=== PATIENT | male | born 1935 | race Caucasian/White ===

== ENCOUNTER → 2020-09-12 12:58 | Outpatient (CLI) | payer MEDICARE, OTHER, SELFPAY | PROVIDERS: Referring Provider Internal Medicine Gastroenterology; Visit Provider Internal Medicine Gastroenterology | DX: K59.00 Constipation, unspecified (principal); Z53.8 Procedure and treatment not carried out for other reasons ==

== ENCOUNTER → 2020-09-19 08:42 | Outpatient (CLI) | payer MEDICARE, OTHER, SELFPAY ==
[2020-09-19 09:36] LABS: BUN Creatinine Ratio 17.3 (6-22); Blood Urea Nitrogen 19 mg/dL (9-20); Calcium 9.6 mg/dL (8.4-10.2); Carbon Dioxide 30 mmol/L (22-32); Chloride 108 mmol/L (98-107); Estimated Glomerular Filt Rate > 60.0 mL/min (>60); Glucose 101 mg/dL (80-110); HEMOLYSIS < 15 (0-50); Sodium 141 mmol/L (137-145)
== END ==
PROVIDERS: Referring Provider Internal Medicine Gastroenterology; Visit Provider Internal Medicine Gastroenterology
DX: Z01.812 Encounter for preprocedural laboratory examination (principal)
CPT/HCPCS: 36415; 80048

== ENCOUNTER → 2020-09-22 12:01 | Outpatient (CLI) | payer MEDICARE, OTHER, SELFPAY ==
--- NOTE | 2020-09-22 12:37 | DI.CT.S_ITS ---
PROCEDURE: CT ABDOMEN PELVIS W CON INDICATIONS: Constipation, unspecified TECHNIQUE: After the administration of oral and intravenous contrast, 5 mm thick sections acquired from the diaphragms to the symphysis. 5 mm thick coronal and sagittal reformats were performed. For radiation dose reduction, the following was used: automated exposure control, adjustment of mA and/or kV according to patient size. COMPARISON: [facility], CT, CHEST/ABD/PEL WITH CONTRAST, 05/24/2015, 12:37. FINDINGS: Image quality: Excellent. ABDOMEN: Lung bases: Lung bases are clear. Heart size is normal. Solid organs: Liver is normal in size . There is a right hepatic lobe cyst measuring 77 mm. Gallbladder is surgically absent. Biliary system is non-dilated. Pancreas enhances normally. Spleen is normal in size and enhancement. No adrenal nodules. Kidneys are normal in size and enhancement, without hydronephrosis. Peritoneum and bowel: There is moderate to severe focal thickening of the mid transverse colon within the anterior abdomen. There is mild surrounding fat stranding. Stomach, small bowel, and colon loops are otherwise normal in caliber and wall thickness. Moderate diffuse colonic stool. Appendix not seen. No evidence of appendicitis. No free fluid or air. Nodes and vessels: No retroperitoneal or mesenteric adenopathy. Aorta and inferior vena cava are normal in caliber. Miscellaneous: No ventral hernias. PELVIS: Genitourinary: Bladder wall thickness is normal. Miscellaneous: No inguinal hernias or adenopathy. Bones: No suspicious bony lesions. No vertebral body compression fractures. IMPRESSION: 1. Focal region of transverse colonic thickening, suggestive of neoplasm. Further assessment with endoscopy is recommended. Dictated by: Rivka Stone M.D. on 09/22/2020 at 15:29 Approved by: Rivka Stone M.D. on 09/22/2020 at 15:33
== END ==
PROVIDERS: Referring Provider Internal Medicine Gastroenterology; Visit Provider Internal Medicine Gastroenterology
DX: K59.00 Constipation, unspecified (principal)
CPT/HCPCS: 74177

== ENCOUNTER → 2021-11-26 08:09 | Outpatient (CLI) | payer MEDICARE, OTHER, SELFPAY ==
[2021-11-26 09:06] LABS: Prostate Specific Antigen 2.34 ng/mL (0.10-4.00)
== END ==
PROVIDERS: PCP Physician Assistant Medical; Referring Provider Specialist; Visit Provider Specialist
DX: N40.0 Benign prostatic hyperplasia without lower urinary tract symptoms (principal)
CPT/HCPCS: 36415; 84153

== ENCOUNTER → 2021-12-21 07:43 | Outpatient (CLI) | payer MEDICARE, OTHER, SELFPAY ==
--- NOTE | 2021-12-21 07:48 | DI.NM.S_ITS ---
PROCEDURE: NM GASTRIC EMPTYING STUDY RADIOPHARMACEUTICAL: 1 mCi Tc-99m sulfur colloid in an egg sandwich. INDICATIONS: Nausea with vomiting, unspecified TECHNIQUE: A Tc-99m labeled oatmeal was served to the patient. Anterior and posterior planar images of the abdomen were obtained at 0 minutes and 30 minutes, then at hourly intervals up to 4 hours. The patient was upright and ambulating during the interval. COMPARISON: [facility], CT, CT ABDOMEN PELVIS W CON, 09/22/2020, 12:58. FINDINGS: The stomach has normal size, morphology, and position. There is normal emptying of solid gastric contents from the stomach by visual inspection. No gastroesophageal reflux is visualized. The percentage of tracer retained at specific time points are as follows: Time point Percent gastric retention Average 30 minutes 39.8% 38% 1 hour 16.1% 23% 2 hours 1.9% 14% 3 hours 1.6% 9% 4 hours - 0% IMPRESSION: Probably normal gastric emptying study. The patient was unable to tolerate egg sandwich. Oatmeal was used for substitute. [facility] 2018, 60: 2040. Dictated by: Lori Cruz M.D. on 12/21/2021 at 11:47 Approved by: Lori Cruz M.D. on 12/21/2021 at 11:49
== END ==
PROVIDERS: PCP Physician Assistant Medical; Referring Provider Internal Medicine; Visit Provider Internal Medicine
DX: R11.2 Nausea with vomiting, unspecified (principal)
CPT/HCPCS: 78264; A9541

== ENCOUNTER → 2022-01-08 10:40 | Outpatient (CLI) | payer MEDICARE, OTHER, SELFPAY ==
--- NOTE | 2022-01-08 10:43 | DI.CT.S_ITS ---
PROCEDURE: CT ABDOMEN PELVIS WO CON INDICATIONS: Asymptomatic microscopic hematuria TECHNIQUE: Axial sections were acquired from the lung bases to the pubic symphysis. Coronal and sagittal reformats were performed. For radiation dose reduction, the following was used: automated exposure control, adjustment of mA and/or kV according to patient size. COMPARISON: [facility], CT, CHEST/ABD/PEL WITH CONTRAST, 05/24/2015, 12:37. [facility], CT, CT ABDOMEN PELVIS W CON, 09/22/2020, 12:58. FINDINGS: Image quality: Excellent. Lung bases: Unremarkable. Heart: No significant findings. Trace pericardial effusion. URINARY: Right Kidney: No stones or hydronephrosis. Right Ureter: No hydroureter. Left Kidney: No stones or hydronephrosis. Left Ureter: No hydroureter. Bladder: Normal wall thickness. No stones. ABDOMEN: Liver: There are multiple hepatic cysts. The largest cyst is near the hepatic dome measuring 6.7 x 7.3 cm. Gallbladder: Unremarkable. Biliary ducts: Unremarkable. Pancreas: Unremarkable. Spleen: Unremarkable. Adrenal Glands: Unremarkable. Stomach and Bowel: Stomach, small bowel loops, and colon are normal in caliber. Sigmoid diverticulosis without acute diverticulitis. Peritoneum: No abnormal intraperitoneal fluid. No free air. Ventral Wall: No hernia. Abdominal Nodes: No enlarged retroperitoneal or mesenteric lymph nodes. Vessels: Aorta and inferior vena cava are normal in size. Moderate atherosclerotic calcifications. PELVIS: Pelvic Organs: Prostate is enlarged. Pelvic Nodes: Unremarkable. Miscellaneous: No inguinal hernias are seen. Bones: Scoliosis. Moderate degenerative disc and facet disease in lumbar spine. IMPRESSION: 1. A cause for micro hematuria is not identified. If clinically indicated, CT IVP may be helpful. 2. Enlarged prostate. 3. Diverticulosis without acute diverticulitis. 4. Multiple hepatic cysts. Dictated by: Lori Cruz M.D. on 01/08/2022 at 16:34 Approved by: Lori Cruz M.D. on 01/08/2022 at 16:40
== END ==
PROVIDERS: PCP Physician Assistant Medical; Referring Provider Urology; Visit Provider Urology
DX: R31.21 Asymptomatic microscopic hematuria (principal); N40.0 Benign prostatic hyperplasia without lower urinary tract symptoms; K57.30 Diverticulosis of large intestine without perforation or abscess without bleeding; K76.89 Other specified diseases of liver
CPT/HCPCS: 74176

== ENCOUNTER → 2022-12-23 10:37 | Outpatient (CLI) | payer MEDICARE, OTHER, SELFPAY ==
--- NOTE | 2022-12-23 10:39 | DI.US.S_ITS ---
PROCEDURE: US CAROTID DOPPLER BI INDICATIONS: CVD TECHNIQUE: Color and pulse Doppler interrogation was performed of both carotid systems, with image documentation and velocity measurements. COMPARISON: None. FINDINGS: Stenosis calculations are based on SRU (Society of Radiologists in Ultrasound) criteria. Right side: Brachial blood pressure: 121/71 mm Hg. Common carotid artery peak systolic velocity: 63 cm/sec. Internal carotid artery peak systolic velocity: 70 cm/sec. Internal carotid artery end diastolic velocity: 20 cm/sec. External carotid artery peak systolic velocity: 60 cm/sec. ICA/CCA peak systolic ratio: 1.1 . Ibrahim scale imaging description: Mild atherosclerotic plaques. Percent internal carotid artery stenosis: Less than 50% stenosis . Vertebral artery: Flow direction is antegrade. Left side: Brachial blood pressure: 120/71 mm Hg. Common carotid artery peak systolic velocity: 61 cm/sec. Internal carotid artery peak systolic velocity: 62 cm/sec. Internal carotid artery end diastolic velocity: 19 cm/sec. External carotid artery peak systolic velocity: 63 cm/sec. ICA/CCA peak systolic ratio: 1.0 . Ibrahim scale imaging description: Mild atherosclerotic plaques. Percent internal carotid artery stenosis: Less than 50% stenosis . Vertebral artery: Flow direction is antegrade. IMPRESSION: Less than 50% stenosis of the bilateral internal carotid arteries. Mild atherosclerotic plaques bilaterally. Dictated by: Vito Garcia M.D. on 12/23/2022 at 12:50 Approved by: Vito Garcia M.D. on 12/23/2022 at 12:52
== END ==
PROVIDERS: PCP Physician Assistant Medical; Referring Provider Internal Medicine Cardiovascular Disease; Visit Provider Internal Medicine Cardiovascular Disease
DX: I67.89 Other cerebrovascular disease (principal); I65.23 Occlusion and stenosis of bilateral carotid arteries
CPT/HCPCS: 93880

== ENCOUNTER 2023-12-18 10:09 | Emergency (ER) | payer MEDICARE, SELFPAY ==
[2023-12-18] VITALS (12 sets, daily range): BP systolic 107–179; BP diastolic 64–86; PULSE 70–105; RESP 12–24; TEMP 36.7; O2SAT 95–98; BMI 25.8
--- NOTE | 2023-12-18 10:26 | ED.ARRPALP ---
HPI - Arrhythmia/Palpitations General Chief Complaint: Arrhythmia/Palpitations Stated Complaint: Covid + In Afib Time Seen by Provider: 12/18/23 10:12 Source: patient Mode of arrival: Ambulatory History of Present Illness HPI narrative: Patient is an 88-year-old male. He has a history of atrial fibrillation. Is on apixaban. States his medications normally control his symptoms. He was advised to come to the emergency department after contacting home advice nurse. He states that he was diagnosed with COVID approximately 4 days ago. This was after his was positive and he started to develop a scratchy throat. He states that he has some sinus congestion but otherwise is asymptomatic from the COVID. States he occasionally has some chest discomfort. States that he felt like his AFib was ?acting up? this morning. He took his pulse this morning and it was in the upper 90s. He contacted the nurse advice line that advised him to come in for evaluation of his AFib and also potential pneumonia. Related Data Home Medications Medication Instructions Recorded Confirmed apixaban 2.5 mg tablet (Eliquis) 2.5 mg PO BID 12/13/21 01/10/22 cholecalciferol (vitamin D3) 125 125 mcg PO DAILY 12/13/21 01/10/22 mcg (5,000 unit) capsule coenzyme Q10 10 mg capsule 10 mg PO ONCE 12/13/21 01/10/22 pitavastatin magnesium 1 mg tablet 1 mg PO DAILY 12/13/21 01/10/22 polyethylene glycol 3350 17 17 g PO DAILY 12/13/21 01/10/22 gram/dose oral powder (Miralax) wheat dextrin 3 gram/3.5 gram oral 1 packet PO DAILY 12/13/21 01/10/22 powder packet (Benefiber Clear Sugar Free(dextrin)) dronedarone 400 mg tablet (Multaq) 400 mg PO BID 01/10/22 01/10/22 Allergies Allergy/AdvReac Type Severity Reaction Status Date / Time codeine [CODEINE] Allergy Unknown Verified 12/18/23 10:19 iodine [IODINE] Allergy Unknown Verified 12/18/23 10:19 Penicillins [PENICILLINS] Allergy Unknown Verified 12/18/23 10:19 Sulfa (Sulfonamide Allergy Verified 12/18/23 10:19 Antibiotics) Review of Systems Review of Systems ROS Unobtainable: All systems reviewed & are unremarkable except as noted in HPI and below Patient History Medical History Lower urinary tract symptoms Chronic anticoagulation Asymptomatic microscopic hematuria History of bucket handle tear of lateral meniscus History of inflammatory bowel disease History of gastroesophageal reflux (GERD) History of diverticulitis History of chest pain History of asthma History of urinary retention Surgical History History of circumcision History of appendectomy Hx of total adrenalectomy Family History Father Cancer Coronary artery disease Hearing impaired Hyperlipidemia Hypertension Mother Cancer Brother Cancer Social History marital status: Smoking Status: Never smoker Smoking Status: Never smoker alcohol intake frequency: holidays/special occasions only Substance Use Type: does not use Exam Initial Vital Signs Initial Vital Signs: Vital Signs Temperature 98.1 F 12/18/23 10:10 Pulse Rate 104 H 12/18/23 10:10 Respiratory Rate 17 12/18/23 10:10 Blood Pressure 179/86 H 12/18/23 10:10 Pulse Oximetry 97 12/18/23 10:10 Oxygen Delivery Method Room Air 12/18/23 10:10 Const General: cooperative, comfortable and No ill appearing HENMT Head: normal to inspection and atraumatic Resp Effort & Inspection: normal respiratory effort, no cough, not labored and not tachypneic Auscultation: clear to auscultation bilaterally Cardio Rate: regular rate Rhythm: abnormal rhythm Skin General: no rashes or lesions noted Neuro General: patient alert, patient awake and moves all extremities Extrem General: normal to inspection Course Orders Ordered: ED Orders 12/18/23 10:12 EKG-12 Lead Stat 12/18/23 10:25 Complete Blood Count AUTO DIFF Stat Comprehensive Metabolic Panel Stat Lipase Stat Magnesium Stat NT-proBNP (BNP-Adult 18+) Stat Troponin & CK Cardiac Panel Stat 12/18/23 10:27 XR chest 1V Stat 12/18/23 12:35 Troponin & CK Cardiac Panel Stat Vital Signs Vital signs: Vital Signs - 8 hr 12/18/23 10:10 12/18/23 10:16 12/18/23 10:17 Temperature 98.1 F Pulse Rate 104 H 105 H Respiratory Rate 17 Blood Pressure 179/86 H 179/86 H Pulse Oximetry 97 96 Oxygen Delivery Method Room Air 12/18/23 10:17 12/18/23 10:30 12/18/23 10:31 Temperature Pulse Rate 98 H 75 Respiratory Rate 16 18 Blood Pressure 116/75 Pulse Oximetry 98 95 Oxygen Delivery Method Room Air 12/18/23 10:31 12/18/23 11:00 12/18/23 11:00 Temperature Pulse Rate 78 80 Respiratory Rate 18 23 Blood Pressure 117/66 Pulse Oximetry 95 96 Oxygen Delivery Method Room Air MDM - Arrhythmia/Palpitations Lab Data Attestation: I reviewed the patient's lab results. 12/18/23 10:25 12/18/23 10:25 Labs: Lab Results 12/18/23 12/18/23 Range/Units 10:25 12:35 WBC 6.6 (4.5-11.0) X10^3/uL RBC 4.82 (4.5-5.9) X10^6/uL Hgb 14.0 (13.5-17.5) g/dL Hct 42.1 (41-53) % MCV 87.2 (80-100) fL MCH 29.1 (26-34) PG MCHC 33.4 (30-36) % RDW 15.0 H (11.6-14.8) % Plt Count 191 (150-400) X10^3/uL Neut % (Auto) 64.2 (50-75) % Lymph % (Auto) 20.3 L (25-40) % Knott % (Auto) 13.4 (3-14) % Eos % (Auto) 1.2 L (2-4) % Baso % (Auto) 0.9 (0-2) % Neut # (Auto) 4300 (3440-1376) /uL Lymph # (Auto) 1300 (6063-6953) /uL Knott # (Auto) 900 (0-900) /uL Eos # (Auto) 100 (0-450) /uL Baso # (Auto) 100 (0-100) /uL Sodium 140 (137-145) mmol/L Potassium 3.6 (3.4-5.1) mmol/L Chloride 108 H (98-107) mmol/L Carbon Dioxide 28 (22-32) mmol/L BUN 26 H (9-20) mg/dL Creatinine 1.12 (0.66-1.25) mg/dL Estimated GFR > 60 (>60) mL/min BUN/Creatinine Ratio 23.2 H (6-22) Glucose 84 (80-110) mg/dL Calcium 8.6 (8.4-10.2) mg/dL Magnesium 2.4 H (1.6-2.3) mg/dL Total Bilirubin 0.5 (0.2-1.3) mg/dL AST 38 (17-59) IU/L ALT 21 (<50) IU/L Alkaline Phosphatase 70 (38-126) U/L Total Creatine Kinase 171 H 145 (55-170) U/L Troponin I 0.041 H 0.035 H (0.01-0.034) ng/mL NT-Pro-B Natriuret Pep 4720 H (<450) pg/mL Total Protein 6.8 (6.3-8.2) g/dL Albumin 3.8 (3.5-5.0) g/dL Globulin 3.0 (1.7-4.1) g/dL Albumin/Globulin Ratio 1.3 (1.0-2.8) Lipase 132 (23-300) U/L Imaging Data Chest x-ray: Radiologist's Impresson: PROCEDURE: XR CHEST 1V INDICATIONS: covid + eval for PNA TECHNIQUE: One view of the chest was acquired. COMPARISON: None. FINDINGS: Surgical changes and devices: None. Lungs and pleura: Lungs are clear. No pleural effusions or pneumothorax. Mediastinum: Mediastinal contours appear normal. Heart size is normal. Bones and chest wall: No suspicious bony lesions. Overlying soft tissues appear unremarkable. IMPRESSION: No acute cardiopulmonary abnormality is seen. ECG Data Attestation: I personally reviewed and interpreted this ECG as follows: Interpretation: Atrial fibrillation Ventricular rate is 73 Left axis deviation Normal QRS QTC No ST T wave changes MDM Narrative Medical decision making narrative: Patient is in AFib med he was rate controlled. He was anticoagulated. He was COVID positive with a home test earlier this week I suspect that is still was the case based on his presentation today. Chest x-ray is unremarkable. He was not hypoxic. Not tachypneic. Second troponin actually lower than the 1st and I doubt this is ACS. Most likely related to his COVID in his AFib. Given his age, COVID positive status in the past he was rate controlled we will hold on cardioversion for now. I suspect that the AFib is related to his COVID. Will discharge patient home with instructions to contact his primary doctor and fund development manager for follow-up him he expressed understanding and agreement with plan. Discharge Plan Departure Patient Disposition: Home Clinical Impression: Atrial fibrillation, COVID-19 Instructions: DI for Atrial Fibrillation, COVID-19 Activity Restrictions/Additional Instructions: Recommend that you continue to take all of your medications as directed. Contact your primary doctor and also your fund development manager for a follow-up. Follow all current CDC guidelines with regard to quarantine in your positive COVID-19 status. Return to the emergency department for new or worsening symptoms. Prescriptions: No Action Eliquis 2.5 mg tablet 2.5 mg PO BID pitavastatin magnesium 1 mg tablet 1 mg PO DAILY cholecalciferol (vitamin D3) 125 mcg (5,000 unit) capsule 125 mcg PO DAILY coenzyme Q10 10 mg capsule 10 mg PO ONCE polyethylene glycol 3350 [Miralax] 17 gram/dose powder 17 g PO DAILY Benefiber Clear SF (dextrin) 3 gram/3.5 gram powder in packet 1 packet PO DAILY Rx Instructions: mix into at least 4 oz water or juice before administering Multaq 400 mg tablet 400 mg PO BID Rx Instructions: must administer with a meal/food Referrals: Azra Busby PA-C [Primary Care Provider] - Stand Alone Forms: Patient Portal/API
--- NOTE | 2023-12-18 10:27 | DI.RAD.S_ITS ---
PROCEDURE: XR CHEST 1V INDICATIONS: covid + eval for PNA TECHNIQUE: One view of the chest was acquired. COMPARISON: None. FINDINGS: Surgical changes and devices: None. Lungs and pleura: Lungs are clear. No pleural effusions or pneumothorax. Mediastinum: Mediastinal contours appear normal. Heart size is normal. Bones and chest wall: No suspicious bony lesions. Overlying soft tissues appear unremarkable. IMPRESSION: No acute cardiopulmonary abnormality is seen. Dictated by: Allen Altamirano M.D. on 12/18/2023 at 11:34 Approved by: Allen Altamirano M.D. on 12/18/2023 at 11:34
--- NOTE | 2023-12-18 10:33 | EKG_ITS ---
[address] [address] Test Date: 2023-12-18 Pat Name: Andie Nieto Department: [facility] Room: Gender: Male Car Checker: ARNAUD : 1935 Requested By: Order Number: [id number] Reading MD: Ashu Romero MD Measurements Intervals [place] Rate: 73 P: AK: QRS: -52 QRSD: 78 T: 21 QT: 412 QTc: 453 Interpretive Statements Atrial fibrillation Left axis deviation Inferior infarct , age undetermined Anterior infarct , age undetermined NO PRIOR TRACING Electronically Signed On 12-18-2023 12:07:02 PDT by Ashu Romero MD
[2023-12-18 10:38] LABS: Add Manual Diff / Slide Review NO; Basophils Absolute Auto 100 /uL (0-100); Basophils Percent Auto 0.9 % (0-2); Eosinophils Absolute Auto 100 /uL (0-450); Eosinophils Percent Auto 1.2 % (2-4); Hematocrit 42.1 % (41-53); Lymphocytes Absolute Auto 1300 /uL (1100-4500); Lymphocytes Percent Auto 20.3 % (25-40); Mean Corpuscular HGB Conc 33.4 % (30-36); Mean Corpuscular Hemoglobin 29.1 PG (26-34); Mean Corpuscular Volume 87.2 fL (80-100); Monocytes Absolute Auto 900 /uL (0-900); Monocytes Percent Auto 13.4 % (3-14); Neutrophils Absolute Auto 4300 /uL (1500-7000); Neutrophils Percent Auto 64.2 % (50-75); Platelet Count 191 X10^3/uL (150-400); Red Blood Cell Count 4.82 X10^6/uL (4.5-5.9); White Blood Cell Count 6.6 X10^3/uL (4.5-11.0)
[2023-12-18 10:45] LABS: Alanine Aminotransferase 21 IU/L (<50); Albumin 3.8 g/dL (3.5-5.0); Albumin Globulin Ratio 1.3 (1.0-2.8); Alkaline Phosphatase 70 U/L (38-126); Aspartate Aminotransferase 38 IU/L (17-59); BUN Creatinine Ratio 23.2 (6-22); Bilirubin Total 0.5 mg/dL (0.2-1.3); Blood Urea Nitrogen 26 mg/dL (9-20); Calcium 8.6 mg/dL (8.4-10.2); Carbon Dioxide 28 mmol/L (22-32); Chloride 108 mmol/L (98-107); Creatine Kinase 171 U/L (55-170); Estimated Glomerular Filt Rate > 60 mL/min (>60); Glucose 84 mg/dL (80-110); HEMOLYSIS 28 (0-50); Lipase 132 U/L (23-300); Magnesium 2.4 mg/dL (1.6-2.3); Potassium 3.6 mmol/L (3.4-5.1); Sodium 140 mmol/L (137-145); Total Protein 6.8 g/dL (6.3-8.2)
[2023-12-18 10:56] LABS: NT-proBNP (BNP-Adult 18+) 4720 pg/mL (<450); Troponin I 0.041 ng/mL (0.01-0.034)
--- NOTE | 2023-12-18 11:06 | PC.NURSE ---
Pt endorses having covid since friday, yesterday while monitoring his BP noticed his BP machine indicated he was in afib. He reports some chest twinges, weakness, SOB, nausea/vomiting. History of N/V d/t GI upset history. Denies dizziness.
[2023-12-18 13:01] LABS: Creatine Kinase 145 U/L (55-170)
[2023-12-18 13:14] LABS: Troponin I 0.035 ng/mL (0.01-0.034)
== END 2023-12-18 13:43 | disposition home or self-care (01) ==
PROVIDERS: Emergency Provider Emergency Medicine; PCP Physician Assistant Medical; Referring Provider Emergency Medicine
DX: I48.91 Unspecified atrial fibrillation (principal); U07.1 COVID-19; Z79.01 Long term (current) use of anticoagulants
CPT/HCPCS: 36415; 71045; 80053; 82550; 83690; 83735; 83880; 84484; 85025; 93005; 93010; 99283; 99284

== ENCOUNTER 2024-11-06 15:02 | Emergency (ER) | payer MEDICARE, SELFPAY ==
[2024-11-06] VITALS (10 sets, daily range): BP systolic 140–145; BP diastolic 67–85; PULSE 58–67; RESP 18–20; TEMP 36.8; O2SAT 92–99; BMI 25.8
--- NOTE | 2024-11-06 15:55 | ED.NECK ---
HPI - Neck Pain/Injury General Chief Complaint: Neck Pain/Injury Stated Complaint: neck/lower back pain , headache Vomiting Time Seen by Provider: 11/06/24 15:13 Mode of arrival: Ambulatory History of Present Illness HPI Narrative: 81-year-old male patient history of atrial fibrillation on Eliquis seen most recently for neck pain and now today presents with low back pain radiating to the neck despite ice heat and Tylenol with no significant relief of his symptoms. He is still able to ambulate with a walker with no recent falls or recent trauma to the area. Patient denies urinary symptoms, chest pain, shortness of breath, diaphoresis, nausea, abdominal pain. Other than what is stated 14 point review of system is negative. Related Data Home Medications ?Medication ?Instructions ?Recorded ?Confirmed apixaban 2.5 mg tablet (Eliquis) 2.5 mg PO BID 12/13/21 01/10/22 cholecalciferol (vitamin D3) 125 125 mcg PO DAILY 12/13/21 01/10/22 mcg (5,000 unit) capsule coenzyme Q10 10 mg capsule 10 mg PO ONCE 12/13/21 01/10/22 pitavastatin magnesium 1 mg tablet 1 mg PO DAILY 12/13/21 01/10/22 polyethylene glycol 3350 17 17 g PO DAILY 12/13/21 01/10/22 gram/dose oral powder (Miralax) wheat dextrin 3 gram/3.5 gram oral 1 packet PO DAILY 12/13/21 01/10/22 powder packet (Benefiber Clear Sugar Free(dextrin)) dronedarone 400 mg tablet (Multaq) 400 mg PO BID 01/10/22 01/10/22 Previous Rx's ?Medication ?Instructions ?Recorded hydrocodone 5 mg-acetaminophen 325 1 tab PO Q4-6H PRN pain #20 tabs 05/25 mg tablet hydrocodone 5 mg-acetaminophen 325 1 tab PO Q4-6H PRN pain #20 tabs 05/25 mg tablet Allergies Allergy/AdvReac Type Severity Reaction Status Date / Time codeine (CODEINE) Allergy Unknown Verified 11/06/24 15:11 iodine (IODINE) Allergy Unknown Verified 11/06/24 15:11 Penicillins (PENICILLINS) Allergy Unknown Verified 11/06/24 15:11 Sulfa (Sulfonamide Allergy Verified 11/06/24 15:11 Antibiotics) Review of Systems Review of Systems ROS Unobtainable: All systems reviewed & are unremarkable except as noted in HPI and below Patient History Medical History Lower urinary tract symptoms Chronic anticoagulation Asymptomatic microscopic hematuria History of bucket handle tear of lateral meniscus History of inflammatory bowel disease History of gastroesophageal reflux (GERD) History of diverticulitis History of chest pain History of asthma History of urinary retention Surgical History History of circumcision History of appendectomy Hx of total adrenalectomy Family History Father Cancer Coronary artery disease Hearing impaired Hyperlipidemia Hypertension Mother Cancer Brother Cancer Social History marital status: Smoking Status: Never smoker Smoking Status: Never smoker alcohol intake frequency: holidays/special occasions only Exam Narrative Exam Narrative: GENERAL: [89] year old patient appears stated age. Well-developed patient, in mild distress. HEAD: Atraumatic. Normocephalic. EYES: Pupils equal round and reactive. Extraocular motions intact. No scleral icterus. No injection or drainage. CARDIOVASCULAR: Regular rate and rhythm without murmurs, gallops, or rubs. RESPIRATORY: Clear to auscultation. Breath sounds equal bilaterally. No wheezes, rales, or rhonchi. GASTROINTESTINAL: Abdomen soft, non-tender, nondistended. EXTREMITIES: No edema or joint tenderness. BACK:TTP midline L5 but no crepitance. No flank tenderness. NEURO: AOx3. SKIN: No rash or erythema of visible areas Initial Vital Signs Initial Vital Signs: Vital Signs Temperature 98.3 F 11/06/24 15:11 Pulse Rate 58 L 11/06/24 15:11 Respiratory Rate 20 11/06/24 15:11 Blood Pressure 145/73 H 11/06/24 15:11 Pulse Oximetry 99 11/06/24 15:11 Oxygen Delivery Method Room Air 11/06/24 15:11 Course Orders Ordered: ED Orders 11/06/24 16:49 CT lumbar spine wo con Stat Vital Signs Vital signs: Vital Signs - 8 hr 11/06/24 15:11 Temperature 98.3 F Pulse Rate 58 L Respiratory Rate 20 Blood Pressure 145/73 H Pulse Oximetry 99 Oxygen Delivery Method Room Air MDM - Neck Pain/Injury Imaging Data Extremity x-ray #1: Radiologist's Impression: [address] [address] [address] Scan Report Signed Patient: Andie Nieto MR#: [id number] : 1935 Acct:[id number] Age/Sex: 89 / M Date of Service: 11/06/24 Loc: ED Accession Number: [id number] Procedure: CT lumbar spine wo con Ordering Provider: Ashu Ulloa D.O. PROCEDURE: CT LUMBAR SPINE WO CON INDICATIONS: back pain TECHNIQUE: Noncontrast 3 mm thick sections acquired from the T12 level to the sacrum. Sagittal and coronal reformats were constructed. For radiation dose reduction, the following was used: automated exposure control. COMPARISON: CT 01/08/2022 FINDINGS: Image quality: Diagnostic Bones: Multilevel endplate deformities likely related to degenerative changes. No acute definite fracture is seen. No traumatic subluxation. Moderate overall spondylosis, with osteophytes, disc space height loss, facet arthropathy. Mild rightward spinal curvature at the thoracolumbar junction. Soft tissues: Partially seen possible large right lobe liver cyst Atherosclerotic calcifications. Colonic diverticulosis. No significant paravertebral fluid collection IMPRESSION: Moderate lumbar spondylosis. No acute displaced fracture or traumatic subluxation. If there is high concern for further derangement, consider MRI evaluation. [facility] Narrative Medical decision making narrative: Vital signs, nurse triage note, medication list, previous ER visits, and all imaging modalities reviewed. CT lumbar spine showed moderate lumbar spondylosis no acute displaced fracture or traumatic subluxation. Patient given Romeo here and will be discharged on Romeo. Differential diagnosis fracture, dislocation, contusion, arthritis, spondylolisthesis, spondylosis. Discharge Plan Departure Patient Disposition: Home Clinical Impression: Spondylosis Instructions: Low Back Pain Activity Restrictions/Additional Instructions: Return with new or worsening symptoms. Take your medicines directed. Follow up with PCP in 1-2 weeks if no improvement in symptoms. Prescriptions: New hydrocodone-acetaminophen 5-325 mg tablet 1 tab PO Q4-6H PRN (Reason: pain) Qty: 20 0RF hydrocodone-acetaminophen 5-325 mg tablet 1 tab PO Q4-6H PRN (Reason: pain) Qty: 20 0RF No Action Eliquis 2.5 mg tablet 2.5 mg PO BID pitavastatin magnesium 1 mg tablet 1 mg PO DAILY cholecalciferol (vitamin D3) 125 mcg (5,000 unit) capsule 125 mcg PO DAILY coenzyme Q10 10 mg capsule 10 mg PO ONCE polyethylene glycol 3350 [Miralax] 17 gram/dose powder 17 g PO DAILY Benefiber Clear SF (dextrin) 3 gram/3.5 gram powder in packet 1 packet PO DAILY Rx Instructions: mix into at least 4 oz water or juice before administering Multaq 400 mg tablet 400 mg PO BID Rx Instructions: must administer with a meal/food Referrals: Azra Busby PA-C [Primary Care Provider, Medical] Stand Alone Forms: Patient Portal/API
--- NOTE | 2024-11-06 16:49 | DI.CT.S_ITS ---
PROCEDURE: CT LUMBAR SPINE WO CON INDICATIONS: back pain TECHNIQUE: Noncontrast 3 mm thick sections acquired from the T12 level to the sacrum. Sagittal and coronal reformats were constructed. For radiation dose reduction, the following was used: automated exposure control. COMPARISON: CT 01/08/2022 FINDINGS: Image quality: Diagnostic Bones: Multilevel endplate deformities likely related to degenerative changes. No acute definite fracture is seen. No traumatic subluxation. Moderate overall spondylosis, with osteophytes, disc space height loss, facet arthropathy. Mild rightward spinal curvature at the thoracolumbar junction. Soft tissues: Partially seen possible large right lobe liver cyst Atherosclerotic calcifications. Colonic diverticulosis. No significant paravertebral fluid collection IMPRESSION: Moderate lumbar spondylosis. No acute displaced fracture or traumatic subluxation. If there is high concern for further derangement, consider MRI evaluation. Dictated by: Bong Connolly M.D. on 11/06/2024 at 16:24 Approved by: Bong Connolly M.D. on 11/06/2024 at 16:28
[2024-11-06] MEDS: HYDROCODONE/ACET 5/325 TABLET 1 TAB PO (17:02)
[2024-11-06 17:53] LABS: Appearance Urine UA CLEAR; Bilirubin Urine UA NEGATIVE (NEGATIVE); Color Urine UA YELLOW; Glucose Urine UA NEGATIVE (Negative); Ketones Urine UA 1+ (NEGATIVE); Leukocyte Esterase Urine UA NEGATIVE (NEGATIVE); Nitrite Urine UA NEGATIVE (Negative); Occult Blood Urine UA 2+ (Negative); Protein Urine UA NEGATIVE (Negative); Specific Gravity Urine UA 1.010 (1.000-1.035); Urobilinogen Urine UA 0.2 E.U./dL (0.2); pH Urine UA 5.5 (4.5-8.0)
[2024-11-06 18:02] LABS: Culture Indicated Urine Cult Not Indicated
[2024-11-06] MEDS: HYDROCODONE/ACET 5/325 PREPACK 1 BOTTLE MISC (18:04)
== END 2024-11-06 18:20 | disposition home or self-care (01) ==
PROVIDERS: Emergency Provider Family Medicine; PCP Physician Assistant Medical
DX: M47.816 Spondylosis without myelopathy or radiculopathy, lumbar region (principal)
CPT/HCPCS: 72131; 81001; 99283; 99284

== ENCOUNTER 2025-04-14 13:27 | Emergency (ER) | payer MEDICARE, SELFPAY ==
[2025-04-14 13:32] VITALS: BP 136/68; PULSE 59; RESP 18; TEMP 36.6; O2SAT 99; BMI 27.3
--- NOTE | 2025-04-14 13:42 | DI.CT.S_ITS ---
PROCEDURE: CT ABDOMEN PELVIS WO CON INDICATIONS: low back pain radiating to abd BL TECHNIQUE: CT of the abdomen and pelvis was obtained without intravenous contrast. Coronal and sagittal reformats were performed. For radiation dose reduction, the following was used: automated exposure control, adjustment of mA and/or kV according to patient size. COMPARISON: [facility], CT, CT ABDOMEN PELVIS WO CON, 01/08/2022, 10:49. FINDINGS: Image quality: Diagnostic. Lower Chest: No significant findings. ABDOMEN: Liver: Large right hepatic lobe cyst measures up to 9.9 x 7.9 cm. Additional smaller buttock cyst are also present. Gallbladder: No radiopaque gallstones or wall thickening. Biliary ducts: No biliary dilation. Pancreas: No ductal dilation. Spleen: Size is within normal limits. Adrenal Glands: No adrenal nodules. Kidneys and Ureters: No hydronephrosis. No contour-deforming mass. Stomach and Bowel: Multiple diverticula in the colon without focal inflammatory changes to suggest acute diverticulitis. Moderate colonic stool. Peritoneum: No abnormal intraperitoneal fluid. No free air. Ventral Wall: No significant hernia. Abdominal Nodes: No retroperitoneal or mesenteric adenopathy by size criteria. Vessels: Aorta and inferior vena cava are normal in size. Moderate aortic atherosclerotic calcifications. PELVIS: Pelvic Organs: Prostate is enlarged. Bladder: Unremarkable. Pelvic Nodes: No enlarged lymph nodes. Miscellaneous: No inguinal hernias are seen. Bones: No aggressive osseous abnormality. Mild scoliotic curvature of the spine with multilevel degenerative changes and mild degenerative spondylolisthesis. Moderate to severe degenerative changes in the hips bilaterally. No acute osseous fracture is seen. IMPRESSION: 1. No acute inflammatory process identified in the abdomen or pelvis. 2. At least moderate multilevel degenerative changes in the lumbar spine. 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 3. Colonic diverticulosis without signs of acute diverticulitis. 4. Multiple hepatic cysts, the largest of which has increased in size and measures up to 9.9 cm. 5. Prostatomegaly. Approved by: Brett Edmonds M.D. on 04/14/2025 at 15:19
--- NOTE | 2025-04-14 15:43 | ED.BACK ---
HPI - Back Pain/Injury <Carina Johnson PA-C - Last Filed: 04/14/25 19:00> General Chief Complaint: Back Pain/Injury Stated Complaint: Lower Back Pain. Time Seen by Provider: 04/14/25 13:41 Source: patient History of Present Illness HPI Narrative: Mr. Nieto is a pleasant 89-year-old gentleman with a past medical history of AFib on Eliquis who presents to the emergency department for low back pain x4 days. Patient denies any injury. States that the pain starts on the left and right side of his lumbar spine and spreads across the entire low back somewhat into the abdomen. He does have difficulty with his urinary stream and bladder emptying and currently has a referral to Urology for this. He deals with constipation. He denies any bowel or bladder incontinence. No saddle anesthesia. No leg pain. Denies fevers, chills, diarrhea, vomiting. Related Data Home Medications ?Medication ?Instructions ?Recorded ?Confirmed apixaban 2.5 mg tablet (Eliquis) 2.5 mg PO BID 12/13/21 01/10/22 cholecalciferol (vitamin D3) 125 125 mcg PO DAILY 12/13/21 01/10/22 mcg (5,000 unit) capsule coenzyme Q10 10 mg capsule 10 mg PO ONCE 12/13/21 01/10/22 pitavastatin magnesium 1 mg tablet 1 mg PO DAILY 12/13/21 01/10/22 polyethylene glycol 3350 17 17 g PO DAILY 12/13/21 01/10/22 gram/dose oral powder (Miralax) wheat dextrin 3 gram/3.5 gram oral 1 packet PO DAILY 12/13/21 01/10/22 powder packet (Benefiber Clear Sugar Free(dextrin)) dronedarone 400 mg tablet (Multaq) 400 mg PO BID 01/10/22 01/10/22 Previous Rx's ?Medication ?Instructions ?Recorded hydrocodone 5 mg-acetaminophen 325 1 tab PO Q4-6H PRN pain #20 tabs 07/05/25 mg tablet hydrocodone 5 mg-acetaminophen 325 1 tab PO Q4-6H PRN pain #20 tabs 07/05/25 mg tablet lidocaine 5 % topical patch 1 patch topical DAILY PRN pain #30 04/14/25 (Lidoderm) ea Allergies Allergy/AdvReac Type Severity Reaction Status Date / Time codeine (CODEINE) Allergy Unknown Verified 04/14/25 13:37 iodine (IODINE) Allergy Unknown Verified 04/14/25 13:37 Penicillins (PENICILLINS) Allergy Unknown Verified 04/14/25 13:37 Sulfa (Sulfonamide Allergy Verified 04/14/25 13:37 Antibiotics) Review of Systems <Carina Johnson PA-C - Last Filed: 04/14/25 19:00> Review of Systems ROS Unobtainable: All systems reviewed & are unremarkable except as noted in HPI and below Patient History <Carina Johnson PA-C - Last Filed: 04/14/25 19:00> Medical History Lower urinary tract symptoms Chronic anticoagulation Asymptomatic microscopic hematuria History of bucket handle tear of lateral meniscus History of inflammatory bowel disease History of gastroesophageal reflux (GERD) History of diverticulitis History of chest pain History of asthma History of urinary retention Surgical History History of circumcision History of appendectomy Hx of total adrenalectomy Family History Father Cancer Coronary artery disease Hearing impaired Hyperlipidemia Hypertension Mother Cancer Brother Cancer Social History marital status: alcohol intake frequency: holidays/special occasions only Exam <Carina Johnson PA-C - Last Filed: 04/14/25 19:00> Narrative Exam Narrative: GENERAL: 89 year old patient appears stated age. Well-developed patient, in no acute distress. HEAD: Atraumatic. Normocephalic. EYES: No scleral icterus. No injection or drainage. NECK: Trachea midline. Cervical ROM intact. CARDIOVASCULAR: Regular rate, irregular rhythm RESPIRATORY: ?Nonlabored respirations. ?Speaking in clear, full sentences. GASTROINTESTINAL: Abdomen soft, non-tender, nondistended. BS present. EXTREMITIES: 2+ radial pulses. BACK: TTP left and right lumbar paraspinal region. No midline spinal tenderness. No skin changes. NEURO: AOx3. ?Clear speech. ?Sensation intact to light touch in bilateral lower extremities. Knee flexion/extension strength intact. Ambulates with a cane. SKIN: No rash or erythema of visible areas Initial Vital Signs Initial Vital Signs: Vital Signs Temperature 97.9 F 04/14/25 13:32 Pulse Rate 59 L 04/14/25 13:32 Respiratory Rate 18 04/14/25 13:32 Blood Pressure 136/68 04/14/25 13:32 Pulse Oximetry 99 04/14/25 13:32 Oxygen Delivery Method Room Air 04/14/25 13:32 <Kenisha Elkins DO - Last Filed: 04/14/25 19:12> Initial Vital Signs Initial Vital Signs: Vital Signs Temperature 97.9 F 04/14/25 13:32 Pulse Rate 59 L 04/14/25 13:32 Respiratory Rate 18 04/14/25 13:32 Blood Pressure 136/68 04/14/25 13:32 Pulse Oximetry 99 04/14/25 13:32 Oxygen Delivery Method Room Air 04/14/25 13:32 Course <Carina Johnson PA-C - Last Filed: 04/14/25 19:00> Orders Ordered: ED Orders 04/14/25 13:42 CT abdomen pelvis wo con Stat 04/14/25 14:45 Urine Culture Stat Urine Microscopic Stat Discontinued Medications Hydrocodone Bitart/Acetaminophen (Hydrocodone/Acet 5/325 Tablet) 1 tab PO NOW ONE Stop: 04/14/25 13:43 Last Admin: 04/14/25 14:14 Dose: 1 tab Documented By: John Paul Vital Signs Vital signs: Vital Signs - 8 hr 04/14/25 13:32 04/14/25 16:33 Temperature 97.9 F Pulse Rate 59 L 60 Respiratory Rate 18 18 Blood Pressure 136/68 128/62 Pulse Oximetry 99 99 Oxygen Delivery Method Room Air Room Air <Kenisha Elkins DO - Last Filed: 04/14/25 19:12> Orders Ordered: ED Orders 04/14/25 13:42 CT abdomen pelvis wo con Stat 04/14/25 14:45 Urine Culture Stat Urine Microscopic Stat Discontinued Medications Hydrocodone Bitart/Acetaminophen (Hydrocodone/Acet 5/325 Tablet) 1 tab PO NOW ONE Stop: 04/14/25 13:43 Last Admin: 04/14/25 14:14 Dose: 1 tab Documented By: [facility] Vital Signs Vital signs: Vital Signs - 8 hr 04/14/25 13:32 04/14/25 16:33 Temperature 97.9 F Pulse Rate 59 L 60 Respiratory Rate 18 18 Blood Pressure 136/68 128/62 Pulse Oximetry 99 99 Oxygen Delivery Method Room Air Room Air MDM - Back Pain/Injury <Carina Johnson PA-C - Last Filed: 04/14/25 19:00> Medical Records Attestation: I reviewed the patient's medical records. Lab Data Labs: Lab Results 04/14/25 Range/Units 14:45 Urine RBC 1-5/hpf (0-5/HPF) Urine WBC None seen (0-5/HPF) Ur Squamous Epith Cells None seen (0-5/HPF) Urine Bacteria None seen (None) Vol Urine Centrifuged 10ml (spun) Urine Dip Bedside Urine Glucose Negative Bedside Urine Bilirubin - Negative Bedside Urine Ketone - Negative Urine Specific Pruden 1.020 Bedside Urine Occult Blood + Bedside Urine pH 6.0 Bedside Urine Protein - Negative Bedside Urine Urobilinogen - Negative Bedside Urine Nitrite - Negative Bedside Urine Leukocytes - Negative Esterase Imaging Data CT scan - abdomen/pelvis: Radiologist's Impression: PROCEDURE: CT ABDOMEN PELVIS WO CON INDICATIONS: low back pain radiating to abd BL TECHNIQUE: CT of the abdomen and pelvis was obtained without intravenous contrast. Coronal and sagittal reformats were performed. For radiation dose reduction, the following was used: automated exposure control, adjustment of mA and/or kV according to patient size. COMPARISON: [facility], CT, CT ABDOMEN PELVIS WO CON, 01/08/2022, 10:49. FINDINGS: Image quality: Diagnostic. Lower Chest: No significant findings. ABDOMEN: Liver: Large right hepatic lobe cyst measures up to 9.9 x 7.9 cm. Additional smaller buttock cyst are also present. Gallbladder: No radiopaque gallstones or wall thickening. Biliary ducts: No biliary dilation. Pancreas: No ductal dilation. Spleen: Size is within normal limits. Adrenal Glands: No adrenal nodules. Kidneys and Ureters: No hydronephrosis. No contour-deforming mass. Stomach and Bowel: Multiple diverticula in the colon without focal inflammatory changes to suggest acute diverticulitis. Moderate colonic stool. Peritoneum: No abnormal intraperitoneal fluid. No free air. Ventral Wall: No significant hernia. Abdominal Nodes: No retroperitoneal or mesenteric adenopathy by size criteria. Vessels: Aorta and inferior vena cava are normal in size. Moderate aortic atherosclerotic calcifications. PELVIS: Pelvic Organs: Prostate is enlarged. Bladder: Unremarkable. Pelvic Nodes: No enlarged lymph nodes. Miscellaneous: No inguinal hernias are seen. Bones: No aggressive osseous abnormality. Mild scoliotic curvature of the spine with multilevel degenerative changes and mild degenerative spondylolisthesis. Moderate to severe degenerative changes in the hips bilaterally. No acute osseous fracture is seen. IMPRESSION: 1. No acute inflammatory process identified in the abdomen or pelvis. 2. At least moderate multilevel degenerative changes in the lumbar spine. 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 3. Colonic diverticulosis without signs of acute diverticulitis. 4. Multiple hepatic cysts, the largest of which has increased in size and measures up to 9.9 cm. 5. Prostatomegaly. Approved by: Brett Edmonds M.D. on 04/14/2025 at 15:19 MDM Narrative Medical decision making narrative: 89-year-old gentleman with a past medical history of AFib on Eliquis who presents to the emergency department for low back pain x4 days. Differential diagnosis includes but is not limited to lumbar degenerative disc disease, enlarged prostate, UTI, urinary retention, etc. On exam the patient is in no acute distress, nontoxic appearing, he is ambulatory. He is having primarily paraspinal bilateral lumbar pain, nontraumatic. It does radiate around to his abdomen. The pain does not extend into his legs, he has no numbness tingling weakness of his legs, saddle anesthesia, bowel or bladder incontinence or dysfunction but he does report chronic issues with urinary stream and incomplete bladder emptying, he currently has a referral to Urology. We will obtain CT abdomen and pelvis, treat with [place] and obtain urinalysis and postvoid residual. Postvoid residual about 100 cc, discussed with attending Dr. Elkins, patient is urinating independently, will not place stone catheter at this time. His back pain has improved significantly with hydrocodone and he continues to be ambulatory. Urinalysis negative for any signs of infection. CT reveals no acute inflammatory process, at least moderate multilevel degenerative changes in the lumbar spine and moderate to severe bilateral hip osteoarthritis. Diverticulosis. Multiple hepatic cysts, the largest of which has increased in size and measures up to 9.9 cm and prostatomegaly. Printed and reviewed imaging results with the patient. States that he is aware of hepatic cysts but since he has gotten larger I stressed the importance of letting his PCP know for further evaluation of this. He is having no right upper quadrant abdominal pain. Also discussed the findings of his degenerative changes of the spine which could be causing his pain in addition to the enlarged prostate. Encouraged patient to follow up with Urology for further management and evaluation of his enlarged prostate and urinary issues. Discussed strict ER return precautions, supportive care of back pain, Tylenol, Lidoderm use and hydrocodone use for severe breakthrough pain. Discussed risks of opioids and recommend that he take MiraLax daily for at least the next month. Patient verbalized understanding of all information is agreeable with the plan, he has a friend to drive him home, he is ambulatory and stable at this time. <Kenisha Elkins, - Last Filed: 04/14/25 19:12> Lab Data Labs: Lab Results 04/14/25 Range/Units 14:45 Urine RBC 1-5/hpf (0-5/HPF) Urine WBC None seen (0-5/HPF) Ur Squamous Epith Cells None seen (0-5/HPF) Urine Bacteria None seen (None) Vol Urine Centrifuged 10ml (spun) Urine Dip Bedside Urine Glucose Negative Bedside Urine Bilirubin - Negative Bedside Urine Ketone - Negative Urine Specific [place] 1.020 Bedside Urine Occult Blood + Bedside Urine pH 6.0 Bedside Urine Protein - Negative Bedside Urine Urobilinogen - Negative Bedside Urine Nitrite - Negative Bedside Urine Leukocytes - Negative Esterase Discharge Plan Departure Patient Disposition: Home Clinical Impression: Enlarged prostate, Hepatic cyst DDD (degenerative disc disease), lumbar Qualifiers: Disc-related pain type: discogenic back pain only Qualified Code(s): M51.360 - Other intervertebral disc degeneration, lumbar region with discogenic back pain only Instructions: DI for Low Back Pain Activity Restrictions/Additional Instructions: Dear Emilia, Thank you for coming to the emergency department. Today you were evaluated for low back pain. As we discussed your CT scan did reveal multiple areas of degenerative change in the low back and hips. You do also have an enlarged prostate. You have been prescribed a short course of pain medication to help with the back pain however please use Tylenol as well. Please follow up with the urologist as soon as possible for further evaluation of your enlarged prostate and follow up with the primary care doctor in regards to your liver cyst. Please return to the emergency department immediately if you develop fevers, inability to urinate, numbness tingling or weakness of the lower extremities, severe pain or any other concerns. Please take MiraLax every day. You have been prescribed a short course of narcotic medications. These are potentially dangerous and addictive medications that should be used carefully. While on these medications you cannot drive or operate heavy machinery. Additionally, you cannot sign legal documents or perform any duties such as this. 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 Please understand that we cannot provide further refills of narcotics or controlled substances through the ED and your pain management will need to be through your Primary Care Provider Please follow up with your primary care doctor within the next 2-3 days for ER follow-up. (If you do not have a PCP you can call [phone]. ?to schedule an appointment with an [facility] Primary Care Provider) IF YOU DEVELOP ANY NEW OR WORSENING SYMPTOMS, RETURN TO THE ER! Please read the attached instructions, they highlight more specific treatments and interventions for you at home. Thank you for letting me participate in your care, Carina Johnson PA-C Prescriptions: New lidocaine [Lidoderm] 5 % adhesive patch,medicated 1 patch topical DAILY PRN (Reason: pain) Qty: 30 0RF Rx Instructions: leave on most painful area for up to 12 hrs No Action hydrocodone-acetaminophen 5-325 mg tablet 1 tab PO Q4-6H PRN (Reason: pain) Qty: 20 0RF hydrocodone-acetaminophen 5-325 mg tablet 1 tab PO Q4-6H PRN (Reason: pain) Qty: 20 0RF Eliquis 2.5 mg tablet 2.5 mg PO BID pitavastatin magnesium 1 mg tablet 1 mg PO DAILY cholecalciferol (vitamin D3) 125 mcg (5,000 unit) capsule 125 mcg PO DAILY coenzyme Q10 10 mg capsule 10 mg PO ONCE polyethylene glycol 3350 [Miralax] 17 gram/dose powder 17 g PO DAILY Benefiber Clear SF (dextrin) 3 gram/3.5 gram powder in packet 1 packet PO DAILY Rx Instructions: mix into at least 4 oz water or juice before administering Multaq 400 mg tablet 400 mg PO BID Rx Instructions: must administer with a meal/food Referrals: Bj lAmaraz DO [Physician, Urology] Referral Note: Prostatomegaly Azra Busby PA-C [Primary Care Provider, Family Practice] Stand Alone Forms: Patient Portal/API ED Sign-out <Kenisha Elkins, - Last Filed: 04/14/25 19:12> Cosign ED Attending Cosignature Attestation: I was immediately available in the department for consultation.
[2025-04-14 16:33] VITALS: BP 128/62; PULSE 60; RESP 18; O2SAT 99
== END 2025-04-14 16:35 | disposition home or self-care (01) ==
PROVIDERS: Emergency Medicine; Emergency Provider Physician Assistant; PCP Physician Assistant Medical
DX: K57.30 Diverticulosis of large intestine without perforation or abscess without bleeding (principal); N40.1 Benign prostatic hyperplasia with lower urinary tract symptoms; K76.89 Other specified diseases of liver; M16.0 Bilateral primary osteoarthritis of hip; M51.369 Other intervertebral disc degeneration, lumbar region without mention of lumbar back pain or lower extremity pain
CPT/HCPCS: 51798; 74176; 81003; 81015; 87086; 99283; 99284